=== PATIENT | male | born 1950 | race Two or more races ===

== ENCOUNTER 2019-06-05 10:58 | Inpatient (IN) | payer MEDICARE, MEDICAID ==
[~2019-06-05] VITALS: Ht 185.4 cm; Wt 90.7 kg
--- NOTE | 2019-06-05 11:10 | NUR ---
PT MAREK FROM [facility] C/O "DIZZINESS, NAUSEA, SPINNING X1 HOUR, HAD BLOOD DRAWN. PT AAOX4, UNLABORED BREATHING ON ROOM AIR, AND PLACED ON A MONITOR. WILL CONTINUE TO MONITOR
[2019-06-05] MEDS ORDERED: ONDANSETRON HCL/PF 4 MG/2 ML VIAL ONE (11:50)
[2019-06-05] MEDS ORDERED: IV NS 0.9% 1,000 ML BAG IV ONE (12:00)
[2019-06-05] MEDS ORDERED: ONDANSETRON HCL/PF 4 MG/2 ML VIAL IVP ONE (12:00)
[2019-06-05 12:31] LABS: BASOPHILS % (AUTO) 0.4 % (0.0-2.0); HEMATOCRIT 44 % (39-51); HEMOGLOBIN 14.6 g/dL (13.5-17.5); LYMPHOCYTES # (AUTO) 1.3 /CMM (0.8-4.8); LYMPHOCYTES % (AUTO) 28.3 % (20.0-44.0); MEAN CORPUSCULAR HGB CONC 33 g/dl (31.0-36.0); MEAN CORPUSCULAR VOLUME 88 fL (80-96); MONOCYTES # (AUTO) 0.5 /CMM (0.1-1.30); MONOCYTES % (AUTO) 10.3 % (2.0-12.0); NEUTROPHILS # (AUTO) 2.7 /CMM (1.8-8.9); PLATELET COUNT (AUTO) 231 /CMM (150-450); RED BLOOD CELL COUNT(AUTO) 5.03 MIL/uL (4.5-6.0); WHITE BLOOD COUNT (AUTO) 4.5 K/uL (4.3-11.0)
[2019-06-05 12:35] LABS: CALCIUM, SERUM 8.7 mg/dL (8.5-10.1); CARBON DIOXIDE 28 mmol/L (21-32); CHLORIDE 104 mmol/L (98-107); CREATININE 0.9 mg/dL (0.6-1.3); GLUCOSE 122 mg/dL (74-106); SODIUM SERUM 140 mmol/L (136-145); UREA NITROGEN, BLOOD 12 mg/dL (7-18)
[2019-06-05 12:41] LABS: ALANINE AMINOTRANSFERASE 38 U/L (12-78); ALBUMIN 3.8 g/dL (3.4-5.0); ALKALINE PHOSPHATASE 49 U/L (46-116); ASPARTATE AMINOTRANSFERASE 30 U/L (15-37); BILIRUBIN,DIRECT 0.1 mg/dL (0.0-0.2); BILIRUBIN,TOTAL 0.6 mg/dL (0.2-1.0); LIPASE 78 U/L (73-393); TOTAL PROTEIN, SERUM 7.1 g/dL (6.4-8.2)
--- NOTE | 2019-06-05 13:24 | NUR ---
PATIENT IN NO DISTRESS, A/OX4, AMBULATORY. IV removed. Catheter intact and site benign. Pressure and 4x4 applied to site. No bleeding noted.Patient discharged to home in stable condition. Written and verbal after care instructions given. Patient verbalizes understanding of instruction.
[2019-06-05] MEDS ORDERED: ALEN70TA6 PO (13:51)
[2019-06-05] MEDS ORDERED: ERGO500040 PO (13:53)
--- NOTE | 2019-06-05 13:53 | NUR ---
PAGED [facility].
--- NOTE | 2019-06-05 13:58 | NUR ---
CALLED HOUSE SUP FOR TELE BED
--- NOTE | 2019-06-05 14:09 | NUR ---
PATIENT UNABLE TO AMBULATE MORE THAN A FEW STEPS, C/O SEVERE DIZZINESS. DR. FERRER MADE AWARE AND RE-ASSESSED PATIENT. PER MD, CANCEL DISCHARGE, WILL ADMIT PATIENT.
--- NOTE | 2019-06-05 14:33 | NUR ---
REPORT GIVEN TO RODERICK ALCALA FOR CHEN.
[2019-06-05] MEDS ORDERED: ENALAPRILAT INJ (1.25 MG/ML) 1.25 MG/ML VIAL IV ONE (14:48)
[2019-06-05] MEDS: ENALAPRILAT INJ (1.25 MG/ML) 1.25 MG/ML VIAL IV PRN ×2 (14:55→14:56)
[2019-06-05 15:05] VITALS: BP 125/88
--- NOTE | 2019-06-05 15:11 | NUR ---
PATIENT TRANSFERRED TO ROOM 313-1 VIA ACLS PROTOCOL. PATIENT IN STABLE CONDITION. NO DISTRESS NOTED.
--- NOTE | 2019-06-05 15:12 | NUR ---
[place]ERA REPAIR TECHNICIAN ADMITTING NOTES ADMITTED PT FROM ER WITH DX OF DIZZINESS.PT C/O DIZZY FOR 3 DAYS AND AFTER A BLOOD DRAW IN HIS DOCTOR'S CLINIC WITH DR GUTIERREZ. MRI WASN'T DONE DUE TO HIS C/O DIZZINESS AND PT CALLED 911.ON TELE WITH SR WITH PAC 'S HR [id number]. NO SOB ON ROOM AIR.PT RESTING IN BED.ORIENTED TO HIS ROOM AND THE USE OF CALL LIGHT.DENIES ANY DISTRESS OR DISCOMFORT.SKIN INTACT.CALL LIGHT PLACED WITHIN REACH.
[2019-06-05] MEDS ORDERED: ONDANSETRON HCL/PF 4 MG/2 ML VIAL IVP PRN (15:30)
[2019-06-05] MEDS ORDERED: MAGNESIUM HYDROXIDE 30 ML UDC PO PRN (15:30)
[2019-06-05] MEDS ORDERED: Z GUARD REMEDY 2 OZ OINT TP PRN (15:30)
[2019-06-05] MEDS ORDERED: MAG HYDROX/AL HYDROX/SIMETH 30 ML UDC PO PRN (15:30)
[2019-06-05] MEDS ORDERED: ACETAMINOPHEN 325 MG TABLET PO PRN (15:30)
[2019-06-05 16:00] VITALS: BP 125/88
[2019-06-05] MEDS ORDERED: ERGOCALCIFEROL (VITAMIN D 2) 50,000 UNIT CAPSULE PO SCH (16:00)
--- NOTE | 2019-06-05 18:02 | NUR ---
PT RESTING IN BED DENYING ANY PAIN OR DISTRESS BUT STILL FEELING DIZZY WITH SLIGHT MOVEMENT.INSTRUCTED DUE TO FALL RISK TO CALL FOR ASSISTANCE WHEN NEEDING TO GET OOB LIKE WHEN GOING TO THE TOILET.PT VERBALIZED UNDERSTANDING OF INSTRUCTIONS GIVEN.CALL LIGHT PLACED WITHIN REACH AND PLACED ON A BED ALARM.
[2019-06-05 19:37] VITALS: BP 90/58
--- NOTE | 2019-06-05 19:45 | NUR ---
AUDIOLOGY TECHNICIAN NOTES RECEIVED ON BED,ON RIGHT SIDE POSITION,BREATHING NORMAL,STROKE SCALE ASSESSMENT WITH IN NORMAL LIMITS.SALINE LOCK LEFT HAND #20 INTACT AND PATENT.STILL FEELING DIZZY ON EXERTION.ADVISED TO CALL FOR ASSISTANCE WHEN HE GO TO THE BATHROOM.URINAL AT BEDSIDE.CALL LIGHT IN REACH,NEEDS ANTICIPATED.
[2019-06-05 20:00] VITALS: BP 90/58
[2019-06-05] MEDS ORDERED: hydrALAZINE HCL IV 20 MG VIAL IV PRN (20:00)
[2019-06-05] MEDS: BLOOD SUGAR DIAGNOSTIC 1 EACH STRIP IN SCH (22:08)
--- NOTE | 2019-06-05 22:15 | NUR ---
PAPER INSERTER NOTES ACCU-CHECK BLOOD SUGAR CHECK 103,NO SLIDING SCALE,FOR STROKE PROTOCOL ONLY
[2019-06-06] MEDS ORDERED: BLOOD SUGAR DIAGNOSTIC 1 EACH STRIP IN SCH
--- NOTE | 2019-06-06 01:00 | NUR ---
CHRISTIAN SCIENCE NURSE NOTES SLEEPING AT THIS TIME.CONTINUE WITH MONITORING.
[2019-06-06 04:00] VITALS: BP 117/77
--- NOTE | 2019-06-06 06:14 | NUR ---
HOUSEHOLD APPLIANCE REPAIRER NOTES ACCU-CHECK BLOOD SUGAR CHECK 115.NO INSULIN COVERAGE.
--- NOTE | 2019-06-06 06:22 | NUR ---
CHICKEN TENDER CLOSING NOTES RESTING COMFORTABLY ON BED,AWAKE THIS TIME,CLAIMED STILL FEELING DIZZY ON AND OFF,BUT IMPROVED A LITTLE BIT.ABLE TO DRINK WATER WITH OUT CHOKING/ASPIRATION.IN NO ACUTE DISTRESS.WILL ENDORSE TO DAY NURSE FOR CHEN.
[2019-06-06 07:23] VITALS: BP 119/79
[2019-06-06 07:25] LABS: BASOPHILS % (AUTO) 0.3 % (0.0-2.0); EOSINOPHILS % (AUTO) 0.8 % (0.0-6.0); HEMATOCRIT 41 % (39-51); HEMOGLOBIN 13.5 g/dL (13.5-17.5); MEAN CORPUSCULAR HGB CONC 33 g/dl (31.0-36.0); MEAN CORPUSCULAR VOLUME 88 fL (80-96); MONOCYTES # (AUTO) 0.6 /CMM (0.1-1.30); MONOCYTES % (AUTO) 10.7 % (2.0-12.0); NEUTROPHILS # (AUTO) 3.9 /CMM (1.8-8.9); NEUTROPHILS % (AUTO) 70.2 % (43.0-81.0); PLATELET COUNT (AUTO) 209 /CMM (150-450); RED BLOOD CELL COUNT(AUTO) 4.62 MIL/uL (4.5-6.0); WHITE BLOOD COUNT (AUTO) 5.5 K/uL (4.3-11.0)
[2019-06-06] MEDS: BLOOD SUGAR DIAGNOSTIC 1 EACH STRIP IN SCH ×4 (07:30→22:18)
[2019-06-06 07:35] LABS: CALCIUM, SERUM 8.5 mg/dL (8.5-10.1); CREATININE 0.8 mg/dL (0.6-1.3); MAGNESIUM 1.8 mg/dL (1.8-2.4); PHOSPHORUS 3.4 mg/dL (2.5-4.9); POTASSIUM 3.9 mmol/L (3.5-5.1)
[2019-06-06 08:00] VITALS: BP 120/78
--- NOTE | 2019-06-06 08:00 | NUR ---
MS RN NOTES PATIENT IN BED RESTING NO SOB OR ACUTE DISTRESS NOTED. PATIENT ALERT, ORIENTED X4. REPORTS DIZZINESS WHEN GETTING UP TO SITTING POSITION AND STANDING. PERIPHERAL IV INTACT PATENT. BED IN LOW LOCKED POSITION. CALL LIGHT WITHIN REACH. WILL CONTINUE TO MONITOR.
--- NOTE | 2019-06-06 11:26 | NUR ---
Social service consult by Dr. Love to rule out stroke. Pt. is a 68 year old Somali speaking male who was admitted to [facility] on 06/05/19. SW met with pt. and his friend Veronica mckinney. Pt. is alert and oriented x 4. Pt's head CT stated, "No acute intracranial hemorrhage or acute territorial infarct." Pt. is independent with his ADL's and discharge plan is to go home. Pt. lives at home with his . Pt. denies any depression and anxiety at this time. No other social service needs are requested at this time.
--- NOTE | 2019-06-06 11:47 | NUR ---
TEXTED DR. LEON FOR MRI APPROVAL.
[2019-06-06 16:00] VITALS: BP 119/84
--- NOTE | 2019-06-06 16:00 | NUR ---
MS RN NOTES INFORMED DR. RIBEIRO PATIENT IS R/U STROKE BUT NO ORDERS FOR ASA AND STATIN DUE TO LDL LEVEL OF 138 ORDERS OBTAINED FOR ASA 325 P DAILY. NOTED AND CARRIED OUT.
[2019-06-06] MEDS ORDERED: GADOTERIDOL 279.3 MG/ML VIAL IV ONE ×2 (16:49)
--- NOTE | 2019-06-06 18:29 | NUR ---
MS RN NOTES PATIENT IN BED RESTING. NO SOB OR ACUTE DISTRESS NOTED. PATIENT HAD MRI AND MRA TOLERATED WELL, NO ADVERSE REACTION NOTED. ALL DUE MEDICATIONS ADMINISTERED. ALL NEEDS MET. NO ACUTE CHANGES NOTED DURING SHIFT. PATIENT REPORTS FEELING A LITTE BETTER THEN YESTERDAY. WILL ENDORSE CARE TO PM SHIFT .
--- NOTE | 2019-06-06 19:20 | NUR ---
MS RN NOTES RECEIVED ON BED A/O X4,NO SOB,DIZZINESS IMPROVED A LOT PER PATIENT,THAT HE WAS ABLE TO WALK TO THE BATHROOM TODAY.SALINE LOCK LEFT HAND INTACT AND PATENT.DENIES DISCOMFORTS AT THE MOMENT.CALL LIGHT IN REACH,NEEDS ANTICIPATED.
--- NOTE | 2019-06-06 19:30 | NUR ---
MS RN NOTES DR RIBEIRO CALLED,PATIENT MADE AWARE OF DISCHARGE ORDER,PATIENT PREFERS TO GO HOME TOMORROW AROUND ELEVEN AM,CLAIMED ITS LATE
[2019-06-06] MEDS ORDERED: MECL-102 PO (19:35)
[2019-06-06 20:00] VITALS: BP 123/78
[2019-06-06 20:05] VITALS: BP 123/78
--- NOTE | 2019-06-06 21:50 | NUR ---
MS RN NOTES PATIENT ASKING FOR SLEEPING PILL,ACNP HYDROPULPER OPERATOR WAS PAGE
--- NOTE | 2019-06-06 21:57 | NUR ---
MS RN NOTES MEME SMITH ACNP PROSTHETIC AIDES TEACHER .CALL BACK ,MADE AWARE OF PATIENT ASKING FOR SLEEPING PILL,WITH ORDER TO GIVEN ONE TIME OF AMBIEN 5MG PO,NOTED AND CARRIED OUT,AWAITING FOR PHARMACIST TO VERIFIED.
[2019-06-06] MEDS ORDERED: ZOLPIDEM TARTRATE 5 MG TABLET PO ONE (22:00)
--- NOTE | 2019-06-06 22:00 | NUR ---
MS RN NOTES ACCU-CHECK BLOOD SUGAR CHECK 117,NO INSULIN COVERAGE,DIAGNOSTIC PROTOCOL FOR STROKE ASSESSMENT.
[2019-06-06] MEDS: MECLIZINE HCL 25 MG TABLET PO SCH (22:21)
[2019-06-07] MEDS: MECLIZINE HCL 25 MG TABLET PO SCH (05:00)
--- NOTE | 2019-06-07 05:00 | NUR ---
MS RN NOTES SOUND ASLEEP,ANTIVERT 25MG PO HELD
--- NOTE | 2019-06-07 06:18 | NUR ---
MS RN NOTES SLEEP WELL WITH AMBIEN 5MG.DIZZINESS IMPROVED ACCORDING TO PATIENT.CALL LIGHT IN REACH,NEEDS ATTENDED.POSSIBLE D/C TODAY.
[2019-06-07] MEDS: BLOOD SUGAR DIAGNOSTIC 1 EACH STRIP IN SCH (07:30)
[2019-06-07 08:00] VITALS: BP 131/89
--- NOTE | 2019-06-07 08:00 | NUR ---
m/s dehydrating press operator: md visit seen and examined by dr. baugh and pt for d'c home today. ask md for meclizine prescription, stated, "it's over the counter medicine." pt made aware.
[2019-06-07] MEDS ORDERED: ASPIRIN 325 MG TABLET PO SCH (09:00)
--- NOTE | 2019-06-07 09:15 | NUR ---
m/s head mixer: notes discharge instruction given with sammarinese staff translating, pt verbalized understanding. also given med teaching re: over the counter med (meclizine), pt verbalized understanding per staff translating. h/l removed with tip intact with no bleeding noted. pt dressed up. awaiting for friend to pick him up. will continue to monitor.
--- NOTE | 2019-06-07 09:30 | NUR ---
m/s nutrient management specialist: neuro f/u seen and examined by dr. wilkisn and dr. mayo (pmd) in room at this time. awaiting for family/friend to pick him up. all d'c papers given to pt.
--- NOTE | 2019-06-07 10:09 | NUR ---
m/s candle cutter: discharged discharged home in stable condition with all valuables and d'c papers accompanied by friend.
== END 2019-06-07 10:10 | disposition home or self-care (01) | DRG 149 ==
LOC: ER 11:03 → TELE 14:36 → MED 06-06 08:29
PROVIDERS: ADMIT Internal Medicine; ATTEND Internal Medicine
DX: H81.10 Benign paroxysmal vertigo, unspecified ear (principal); I16.1 Hypertensive emergency; I10 Essential (primary) hypertension; R73.9 Hyperglycemia, unspecified; Z88.8 Allergy status to other drugs, medicaments and biological substances; Z86.73 Personal history of transient ischemic attack (TIA), and cerebral infarction without residual deficits; M81.0 Age-related osteoporosis without current pathological fracture; Z79.899 Other long term (current) drug therapy; F17.200 Nicotine dependence, unspecified, uncomplicated; I67.2 Cerebral atherosclerosis
CPT/HCPCS: 36415; 70450-TC; 70551-TC; 80048-TC; 80061-TC; 80076-TC; 82962-TC; 83690-TC; 83735-TC; 84100-TC; 84484-TC; 85025-TC; 87081-TC; 92526; 92611-TC; 93307-TC; 97116-TC; 97530-TC; A9579; G0378; J2405; J3490; J7030; J8597

== ENCOUNTER 2021-11-25 11:37 | Emergency (ER) | payer MEDICARE, OTHER ==
[~2021-11-25] VITALS: Ht 182.9 cm; Wt 90.7 kg
[~2021-11-25 11:37] MED LIST: ERGO500040 PO; MECL-159 PO
[2021-11-25 11:55] VITALS: BP 148/103
[2021-11-25] MEDS ORDERED: AMOX-430 PO (12:37)
[2021-11-25] MEDS ORDERED: AMOX/CLAVULANATE 875 MG TABLET ONE (12:51)
[2021-11-25] MEDS ORDERED: TDAP [DIPH/PERTUSSIS/TET] 0.5 ML VIAL IM ONE ×2 (12:51→13:00)
[2021-11-25] MEDS ORDERED: AMOX/CLAVULANATE 875 MG TABLET PO ONE (13:00)
== END 2021-11-25 13:04 | disposition home or self-care (01) ==
LOC: ER 12:33
DX: S61.452A Open bite of left hand, initial encounter (principal); Z88.9 Allergy status to unspecified drugs, medicaments and biological substances; Z79.899 Other long term (current) drug therapy; W54.0XXA Bitten by dog, initial encounter; Y93.89 Activity, other specified; Y92.89 Other specified places as the place of occurrence of the external cause; Y99.8 Other external cause status
CPT/HCPCS: 90715